=== PATIENT | female | born 1970 | race Caucasian/White ===

== ENCOUNTER → 2022-03-10 10:26 | Outpatient (BNVA) | payer MEDICAID, SELFPAY | PROVIDERS: Family Provider Nurse Practitioner Family; Visit Provider Family Medicine | DX: S69.92XA Unspecified injury of left wrist, hand and finger(s), initial encounter (principal); W19.XXXA Unspecified fall, initial encounter | CPT/HCPCS: 73110 ==

== ENCOUNTER 2022-06-19 11:12 | Outpatient (CLI) | payer MEDICAID, SELFPAY ==
--- NOTE | 2022-06-19 11:19 | MM_ITS ---
WS: [id number] SCREENING DIGITAL TOMOSYNTHESIS MAMMOGRAM WITH CAD HISTORY: SCREENING COMPARISON: 04/08/2011 Bilateral CC and MLO with tomosynthesis views submitted. Synthetic mammography reviewed. Computer aid ed detection analyzed. Breast composition: There are scattered areas of fibroglandular density. No suspicious masses, microc alcifications or architectural distortion. Prior biopsy clip in the posterior central RIGHT breast. MM/[place] [id number] IMPRESSION: BI-RADS: 2-Benign FOLLOW UP: 1 Year Follow-up
== END 2022-06-19 11:13 | disposition home or self-care (01) ==
LOC: RAD 11:14
PROVIDERS: PCP Nurse Practitioner Family; Visit Provider Nurse Practitioner Family
DX: Z12.31 Encounter for screening mammogram for malignant neoplasm of breast (principal)
CPT/HCPCS: 77063; 77067

== ENCOUNTER → 2023-03-25 09:40 | Outpatient (BNVA) | payer MEDICAID, SELFPAY | PROVIDERS: PCP Nurse Practitioner Family; Referring Provider Nurse Practitioner Family; Visit Provider Nurse Practitioner Women's Health | DX: Z12.4 Encounter for screening for malignant neoplasm of cervix (principal); N95.0 Postmenopausal bleeding | CPT/HCPCS: 82670; 83001; 87624 ==

== ENCOUNTER → 2023-04-02 11:11 | Outpatient (BNVA) | payer MEDICAID, SELFPAY | PROVIDERS: PCP Nurse Practitioner Family; Visit Provider Nurse Practitioner Women's Health | DX: N95.0 Postmenopausal bleeding (principal) | CPT/HCPCS: 76830 ==

== ENCOUNTER → 2023-04-09 09:30 | Outpatient (BNVA) | payer MEDICAID, SELFPAY | PROVIDERS: PCP Nurse Practitioner Family; Visit Provider Nurse Practitioner Women's Health | DX: N95.0 Postmenopausal bleeding (principal) | CPT/HCPCS: 88305 ==

== ENCOUNTER 2023-06-15 20:00 | Outpatient (CLI) | payer MEDICAID, SELFPAY | END 2023-06-15 20:01 | disposition home or self-care (01) | LOC: SLEEP 06-16 03:54 | PROVIDERS: PCP Nurse Practitioner Family; Visit Provider Nurse Practitioner Family | DX: G47.30 Sleep apnea, unspecified (principal); G47.10 Hypersomnia, unspecified | CPT/HCPCS: 95810 ==

== ENCOUNTER 2023-06-26 11:35 | Outpatient (CLI) | payer MEDICAID, SELFPAY ==
--- NOTE | 2023-06-26 11:38 | MM_ITS ---
WS: [email or web address] VIEWS: MLO and CC views both breasts. 3D digital tomosynthesis is also included in this exam. Comparison made with prior exam of 04/08/2011, 06/19/2022.. Findings: Questionable 6 mm nodule seen in the medial aspect of the RIGHT breast at mid depth level only on th e cc view and CC tomograms. The remaining aspects of both breasts are unchanged with no new finding. Compression spot images and regional ultrasound of the RIGHT breast would be indicated for further wo rk-up. The breasts are heterogeneously dense which could obscure small masses Impression: MM/[place] [id number] BI-RADS: 0-Incomplete: Need additional imaging evaluation FOLLOW-UP: See Report This mammogram was also analyzed by the Computer Aided Detection System R2 Imag e Courtroom Clerk.
== END 2023-06-26 11:36 | disposition home or self-care (01) ==
LOC: RAD 11:35
PROVIDERS: PCP Nurse Practitioner Family; Visit Provider Nurse Practitioner Family
DX: Z12.31 Encounter for screening mammogram for malignant neoplasm of breast (principal)
CPT/HCPCS: 77063; 77067

== ENCOUNTER 2023-07-23 08:33 | Outpatient (CLI) | payer MEDICAID, SELFPAY ==
--- NOTE | 2023-07-23 08:49 | MM_ITS ---
WS: [email or web address] VIEWS: MLO, CC, and ML views RIGHT breast to include tomograms were obtained. Comparison made with prior exam of screening mammogram performed 06/26/2023. Findings: Additional views show 6 mm ovoid nodule between the 5 and 6 o'clock position in the RIGHT breast. No architectural distortion identified. Several vascular calcifications noted near the nodule. No other discrete lesions are identified. Further work-up with regional ultrasound is indicated. There are sca ttered areas of fibroglandular density of Impression: MM/[place] [id number] BI-RADS: 0-Incomplete: Need additional imaging evaluation FOLLOW-UP: See Report This mammogram was also analyzed by the Computer Aided Detection System R2 Imag e Trade Promotion Analyst.
--- NOTE | 2023-07-23 08:50 | US_ITS ---
WS: [email or web address] Exam: US breast RT limited* [id number] Date/Time of Exam: 07/23/2023 9:38 AM Reason For Exam: ABNORMAL MAMMO Regional ultrasound of the RIGHT breast is performed from the 1:00 to the 6 o'clock position. There is a 6 mm cyst identified at the 6 o'clock position which appears to correspond to the previous ly reported nodule identified on mammographic images. No suspicious mass or nodule identified in this area. IMPRESSION: 1. 6 mm cyst seen at the 6 o'clock position in the RIGHT breast which appears to correspond to the no dular density described on recent mammography. BI-RADS Category 2. Recommendations: Continue yearly screening mammography.
== END 2023-07-23 08:34 | disposition home or self-care (01) ==
LOC: RAD 08:33
PROVIDERS: PCP Nurse Practitioner Family; Visit Provider Nurse Practitioner Family
DX: R92.8 Other abnormal and inconclusive findings on diagnostic imaging of breast (principal); N60.01 Solitary cyst of right breast
CPT/HCPCS: 76642; 77061; G0279

== ENCOUNTER 2023-11-11 09:41 | Outpatient (CLI) | payer MEDICAID, SELFPAY ==
--- NOTE | 2023-11-11 09:51 | XR_ITS ---
WS: [email or web address] Examination: XR hand RT 2V [id number] Reason for Exam: R HAND PAIN Date: November 11, 2023 Comparison: None. Findings: There is no meaghan destruction. There are faint areas of focal decreased bone density identified withi n the navicular and capitate. Early cyst formation could have this appearance. I see no erosive changes. The joint spaces are generally maintained. There is no fracture or dislocation. Impression: No acute bony abnormality is identified. No significant arthritic changes appreciated.
== END 2023-11-11 09:42 | disposition home or self-care (01) ==
PROVIDERS: PCP Nurse Practitioner Family; Visit Provider Nurse Practitioner Family
DX: M79.641 Pain in right hand (principal)
CPT/HCPCS: 73120

== ENCOUNTER 2024-09-02 10:56 | Outpatient (CLI) | payer MEDICAID, SELFPAY ==
--- NOTE | 2024-09-02 10:57 | MM_ITS ---
WS: [id number] Bilateral screening 3D tomosynthesis digital mammogram, 09/02/2024 11:08 AM Clinical Data: SCREENING Comparison: 07/23/2023, 06/26/2023, 06/19/2022, 04/08/2011, 01/25/2007, 01/22/2007 Findings: No spiculated masses or clustered calcifications are seen. There are no secondary signs of carcinoma . MM/MM scr BI tomosynthesis [id number] Impression: Negative bilateral mammogram unchanged. Recommend annual screening mammograms. BIRADS: 1 - Negative. FOLLOW UP: 1 Year Follow-up DENSITY: There are scattered areas of fibroglandular density. The CAD checker in was used
== END 2024-09-02 10:57 | disposition home or self-care (01) ==
LOC: RAD 10:57
PROVIDERS: PCP Nurse Practitioner Family; Visit Provider Nurse Practitioner Family
DX: Z12.31 Encounter for screening mammogram for malignant neoplasm of breast (principal); R92.323 Mammographic fibroglandular density, bilateral breasts
CPT/HCPCS: 77063; 77067